=== PATIENT | female | born 1980 | race Caucasian/White ===

== ENCOUNTER 2016-07-30 06:39 | Emergency (ER) | payer SELFPAY ==
[2016-07-30 06:58] VITALS: BP 115/61
[2016-07-30] MEDS ORDERED: Raltegravir* 400 MG TAB PO ONE (07:27)
[2016-07-30] MEDS ORDERED: Tenofovir/Emtricitabine(*) TAB PO ONE (07:27)
--- NOTE | 2016-07-30 07:38 | ED ---
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 The needle came out of the sleeping patient and stuck the lab worker in the right index finger. She immediately washed the area with soap and water, and came to the ED for evaluation. He tetanus is up to date. - History of Current Complaint Chief Complaint: EDExposureBodyFluid Stated Complaint: EXPOSURE/NEEDLE STICK Time Seen by Provider: 07/30/16 06:43 Date of Incident: 07/30/16 Time of Incident: 06:26 Job Performing at Time of Incident: blood draw Mechanism of Injury: patient moved Needlestick: Hollow Needle - 21 gauge Blood on Needle: Yes Depth of Needlestick: Puncture Depth: superficial Bleeding at Site: Yes Body Fluid Exposure: Blood Treatment PRODUCTION TEAM MEMBER: Cleaned Wound, Expressed Blood - Source Information HIV: Unknown Hepatitis: Unknown - Risk Factors Needlestick Risk Factor: Low Risk: Short Duration - Other Discussed Post-Exposure prophylaxis (PEP) for HIV: Accepted Discussed PEP for Hepatitis-B: Declined Serologic Testing (HIV/HBV) Declined by Patient: Yes PMH/Surg Hx/FS Hx/Imm Hx Previously Healthy: Yes Infectious Disease History: No Infectious Disease History: Denies: Traveled Outside the [place] in Last 30 Days - Family History Known Family History: Positive: None - Social History Occupation: Employed Full-time Lives: With Family Alcohol Use: Rare Substance Use Type: Reports: None Smoking Status (MU): Never Smoked Tobacco Review of Systems Positive: Other - superficial puncture wound to medial aspect of right index finger All Other Systems Reviewed And Are Negative: Yes Physical Exam Triage Information Reviewed: Yes Vital Signs On Initial Exam: Initial Vitals Temp Pulse Resp BP Pulse Ox 97.9 F 71 16 115/61 98 07/30/16 06:50 07/30/16 06:50 07/30/16 06:50 07/30/16 06:50 07/30/16 06:50 Vital Signs Reviewed: Yes Appearance: Positive: Well-Appearing, No Pain Distress, Obese Skin: Positive: Warm, Skin Color Reflects Adequate Perfusion, Dry, Tender - superficial puncture wound to medial aspect of right index finger, Soft Head/Face: Positive: Normal Head/Face Inspection Eyes: Positive: EOMI, LION, Conjunctiva Clear ENT: Positive: Hearing grossly normal Respiratory/Lung Sounds: Positive: Breath Sounds Present Cardiovascular: Positive: RRR Musculoskeletal: Positive: Strength/ROM Intact. Negative: Edema Left, Edema Right Neurological: Positive: Sensory/Motor Intact, Alert, Oriented to Person Place, Time, NV Bundle Intact Distally Psychiatric: Positive: Affect/Mood Appropriate AVPU Assessment: Alert Diagnostics - Vital Signs Vital Signs Temp Pulse Resp BP Pulse Ox 07/30/16 06:50 97.9 F 71 16 115/61 98 - Laboratory Lab Statement: Any lab studies that have been ordered have been reviewed, and results considered in the medical decision making process. Needlestick Course/Dx - Course Assessment/Plan: Patient was counseled about PEP and opted to undergo treatment. She will be given her first dose in the ED and discharged with a 7 day supply as per protocol. She will follow up with DR. Hamlin and Xena Tay, and will return to work today. - Diagnoses Provider Diagnoses: Needle stick injury of finger, Employee exposure to body fluids Discharge - Discharge Plan Condition: Stable Disposition: HOME Prescriptions: Raltegravir* [Isentress*] 400 mg PO BID #46 tab Tenofovir/Emtricitabine(*) [Truvada*] 1 tab PO DAILY #23 tab Patient Education Materials: Postexposure Prophylaxis (ED) Referrals: Yakelin NGUYEN,Rip Deal [Medical Doctor] - Additional Instructions: Please call Xena Tay with [facility] [place] [facility] employee health at [phone] for follow-up instructions. Call Dr. Hamlin as well for a follow-up appointment in the next 4-7 days. Take the medication as prescribed. Return to the emergency department if your symptoms worsen.
[2016-07-30 07:46] LABS: Hematocrit 40 % (35-47); Hemoglobin 13.1 g/dl (12.0-16.0); Mean Corpuscular HGB Conc 33 g/dl (31-36); Mean Corpuscular Hemoglobin 27 pg (27-31); Mean Corpuscular Volume 82 fL (80-97); Mean Platelet Volume 8 um3 (7.4-10.4); Red Blood Count 4.85 10^6/ul (4.0-5.4); Red Cell Distribution Width 14 % (10.5-15); White Blood Count 7.2 10^3/ul (3.5-10.8)
[2016-07-30 07:57] LABS: Albumin 3.9 g/dL (3.2-5.2); BUN/Creatinine Ratio 21.1 (8-20); Calcium 8.9 mg/dL (8.6-10.3); EGFR African American 154.3 (>60); Globulin 3.7 g/dL (2-4); Potassium 3.7 mmol/L (3.5-5.0); Total Bilirubin 0.5 mg/dL (0.2-1.0); Total Protein 7.6 g/dL (6.4-8.9)
[2016-07-30 09:02] LABS: Manual Entry Verification GRE0060; Rapid HIV INT CONT QC Line Present; Rapid HIV Kit Lot# F209011
== END 2016-07-30 11:46 | disposition home or self-care (01) ==
LOC: ED 06:39
DX: S61.230A Puncture wound without foreign body of right index finger without damage to nail, initial encounter (principal); Z77.21 Contact with and (suspected) exposure to potentially hazardous body fluids; W46.1XXA Contact with contaminated hypodermic needle, initial encounter; Y93.89 Activity, other specified; Y92.239 Unspecified place in hospital as the place of occurrence of the external cause; Y99.9 Unspecified external cause status
CPT/HCPCS: 36415; 80053; 84702; 85027; 86703; 86706; 86803; 87340; 99282

== ENCOUNTER 2017-03-04 14:15 | Emergency (ER) | payer BC, OTHER ==
[2017-03-04 14:59] LABS: Hematocrit 40 % (35-47); Hemoglobin 12.8 g/dl (12.0-16.0); Mean Corpuscular HGB Conc 32 g/dl (31-36); Mean Corpuscular Hemoglobin 25 pg (27-31); Mean Corpuscular Volume 78 fL (80-97); Mean Platelet Volume 7 um3 (7.4-10.4); Red Blood Count 5.05 10^6/ul (4.0-5.4); Red Cell Distribution Width 14 % (10.5-15); White Blood Count 7.7 10^3/ul (3.5-10.8)
[2017-03-04] MEDS ORDERED: Ketorolac INJ* 30 MG/ML 1 ML VIAL IV PUSH ONE (15:20)
--- NOTE | 2017-03-04 15:24 | RAD ---
INDICATION: Chest pain. Cardiac disease. COMPARISON: No relevant prior exams available on the [facility] for comparison. TECHNIQUE: Dual energy PA and routine lateral views of the chest were obtained. REPORT: Clear lungs and pleural spaces. Negative for pneumothorax. The heart, pulmonary vasculature, and mediastinal contours are unremarkable. Unremarkable osseous structures and soft tissue contours. IMPRESSION: No evidence for acute intrathoracic disease.
[2017-03-04 15:25] LABS: ALT 30 U/L (7-52); AST 25 U/L (13-39); Albumin 3.8 g/dL (3.2-5.2); Alkaline Phosphatase 101 U/L (34-104); Anion Gap 5 mmol/L (2-11); BUN/Creatinine Ratio 18.3 (8-20); Blood Urea Nitrogen 11 mg/dL (6-24); CO2 Carbon Dioxide 23 mmol/L (22-32); Calcium 8.7 mg/dL (8.6-10.3); Chloride 108 mmol/L (101-111); Creatine Kinase 41 U/L (10-223); EGFR African American 144.7 (>60); EGFR Non-African American 112.5 (>60); Globulin 3.7 g/dL (2-4); Glucose 118 mg/dL (70-100); Potassium 3.3 mmol/L (3.5-5.0); Sodium 136 mmol/L (133-145); Total Protein 7.5 g/dL (6.4-8.9)
[2017-03-04 16:02] LABS: Urine Bilirubin Negative (Negative); Urine Glucose Negative (Negative); Urine Nitrite Negative (Negative)
[2017-03-04 16:08] LABS: TSH (Thyroid Stimulating Horm) 1.42 mcIU/mL (0.34-5.60)
[2017-03-04 17:51] VITALS: BP 104/64
--- NOTE | 2017-03-04 18:08 | ED ---
Tacho Osborn Angela, scribed for Hugh Goodwin MD on 03/04/17 at 1435 . HPI Chest Pain - HPI Summary HPI Summary: This pt is a 36 y/o female presenting to [facility] c/o chest pain radiating to her back upon awaking today. Pt reports associated anxiety while resting yesterday. Pt describes her chest pain as dull and pressure, with SOB. Currently, she states there a lot more pressure and can feel the pain all the way to her back close to her spine. Her pain is aggravated with deep breaths, movement of arms, and ambulation Pt denies nausea, vomiting, cough, fever. She states feeling light-headed and dizzy earlier today, but has now resolved. Pt notes PMHX: heart murmurs as a child, PCOS, asthma. SHx: cholecystectomy (2010) and uterus surgeries. She denies FHx of [place] at her age. Pt takes keara root BID and allergy pills PRN. - History of Current Complaint Chief Complaint: EDChestPainROMI Time Seen by Provider: 03/04/17 14:27 Hx Obtained From: Patient Onset/Duration: Started Hours Ago Timing: Lasting Hours Pain Intensity: 6 Chest Pain Location: Mid Sternal Chest Pain Radiates: Yes Chest Pain Radiates To:: Back Character: Dull/Aching, Pressure/Squeezing Aggravating Factor(s): Movement, Deep Breaths, Other: - ambulating Associated Signs and Symptoms: Positive: Chest Pain, Anxiety, Dizziness - and light-headedness, now both resolved, Shortness of Breath, Back Pain. Negative: Fever, Chills, Nausea, Cough, Abdominal Pain, Vomiting - Allergy/Home Medications Allergies/Adverse Reactions: Allergies Allergy/AdvReac Type Severity Reaction Status Date / Time No Known Allergies Allergy Verified 03/04/17 14:39 Home Medications: Home Medications Keara Root [Femmenessence Macaharmony] 500 mg PO BID 03/04/17 [History Confirmed 03/04/17] PMH/Surg Hx/FS Hx/Imm Hx Endocrine/Hematology History: Denies: Hx Diabetes Cardiovascular History: Reports: Other Cardiovascular Problems/Disorders - heart murmur Denies: Hx Hypertension, Hx Myocardial Infarction Respiratory History: Reports: Hx Asthma History: Reports: Other Problems/Disorders - PCOS - Surgical History Surgery Procedure, Year, and Place: cholecystectomy in 2010. Surgeries in her uterus. Infectious Disease History: No Infectious Disease History: Denies: Traveled Outside the US in Last 30 Days - Family History Known Family History: Negative: Cardiac Disease - NEGATIVE: [place] in father or mother - Social History Alcohol Use: Rare Substance Use Type: Reports: None Smoking Status (MU): Former Smoker - quit 9 years ago Review of Systems Negative: Fever, Chills Eyes: Negative ENT: Negative Positive: Chest Pain. Negative: Palpitations Positive: Shortness Of Breath. Negative: Cough Negative: Abdominal Pain, Vomiting, Diarrhea, Nausea Genitourinary: Negative Positive: Other - back pain Skin: Negative Neurological: Other - light headedness and dizziness earlier, now resolved Negative: Weakness, Paresthesia, Numbness All Other Systems Reviewed And Are Negative: Yes Physical Exam - Summary Physical Exam Summary: VITAL SIGNS: Reviewed. GENERAL: ~Patient is a well-developed and nourished female who is lying comfortable in the stretcher. ~Patient is not in any acute respiratory distress. HEAD AND FACE: No signs of trauma. ~No ecchymosis, hematomas or skull depressions. No sinus tenderness. EYES: PERRLA, EOMI x 2, No injected conjunctiva, no nystagmus. EARS: Hearing grossly intact. Ear canals and tympanic membranes are within normal limits. MOUTH: Oropharynx within normal limits. NECK: Supple, trachea is midline, no adenopathy, no JVD, no carotid bruit, no c- spine tenderness, neck with full ROM. CHEST: Symmetric. There is reproducible chest pain around the midsternal area and on the left chest area. LUNGS: Clear to auscultation bilaterally. No wheezing or crackles. CVS: Regular rate and rhythm, S1 and S2 present, no murmurs or gallops appreciated. ABDOMEN: Soft, non-tender. No signs of distention. No rebound no guarding, and no masses palpated. Bowel sounds are normal. EXTREMITIES: FROM in all major joints, no edema, no cyanosis or clubbing. NEURO: Alert and oriented x 3. No acute neurological deficits. Speech is normal and follows commands. SKIN: Dry and warm Triage Information Reviewed: Yes Vital Signs On Initial Exam: Initial Vitals Temp Pulse Resp BP Pulse Ox 98.2 F 83 20 124/69 98 03/04/17 14:23 03/04/17 14:23 03/04/17 14:23 03/04/17 14:23 03/04/17 14:23 Vital Signs Reviewed: Yes Diagnostics - Vital Signs Vital Signs Temp Pulse Resp BP Pulse Ox 03/04/17 14:23 98.2 F 83 20 124/69 98 - Laboratory Lab Results: Lab Results 03/04/17 03/04/17 03/04/17 Range/Units 14:28 14:44 14:44 WBC (3.5-10.8) 10^3/ul RBC (4.0-5.4) 10^6/ul Hgb (12.0-16.0) g/dl Hct (35-47) % MCV (80-97) fL MCH (27-31) pg MCHC (31-36) g/dl RDW (10.5-15) % Plt Count (150-450) 10^3/ul MPV (7.4-10.4) um3 Neut % (Auto) (38-83) % Lymph % (Auto) (25-47) % [place] % (Auto) (1-9) % Eos % (Auto) (0-6) % Baso % (Auto) (0-2) % Absolute Neuts (auto) (1.5-7.7) 10^3/ul Absolute Lymphs (auto) (1.0-4.8) 10^3/ul Absolute Monos (auto) (0-0.8) 10^3/ul Absolute Eos (auto) (0-0.6) 10^3/ul Absolute Basos (auto) (0-0.2) 10^3/ul Absolute Nucleated RBC 10^3/ul Nucleated RBC % D-Dimer, Quantitative < 200 (Less Than 230) ng/mL Sodium 136 (133-145) mmol/L Potassium 3.3 L (3.5-5.0) mmol/L Chloride 108 (101-111) mmol/L Carbon Dioxide 23 (22-32) mmol/L Anion Gap 5 (2-11) mmol/L BUN 11 (6-24) mg/dL Creatinine 0.60 (0.51-0.95) mg/dL Est GFR ( Amer) 144.7 (>60) Est GFR (Non-Af Amer) 112.5 (>60) BUN/Creatinine Ratio 18.3 (8-20) Glucose 118 H (70-100) mg/dL Calcium 8.7 (8.6-10.3) mg/dL Total Bilirubin 0.30 (0.2-1.0) mg/dL AST 25 (13-39) U/L ALT 30 (7-52) U/L Alkaline Phosphatase 101 (34-104) U/L Total Creatine Kinase 41 (10-223) U/L CK-MB (CK-2) 1.6 (0.6-6.3) ng/mL Troponin I 0.00 (<0.04) ng/mL B-Natriuretic Peptide 19 ( - 100) pg/mL Total Protein 7.5 (6.4-8.9) g/dL Albumin 3.8 (3.2-5.2) g/dL Globulin 3.7 (2-4) g/dL Albumin/Globulin Ratio 1.0 (1-3) TSH 1.42 (0.34-5.60) mcIU/mL Beta HCG, Quant < 0.60 mIU/mL Urine Color Urine Appearance Urine pH (5-9) Ur Specific [place] (1.010-1.030) Urine Protein (Negative) Urine Ketones (Negative) Urine Blood (Negative) Urine Nitrate (Negative) Urine Bilirubin (Negative) Urine Urobilinogen (Negative) Ur Leukocyte Esterase (Negative) Urine Glucose (Negative) 03/04/17 03/04/17 Range/Units 14:44 15:40 WBC 7.7 (3.5-10.8) 10^3/ul RBC 5.05 (4.0-5.4) 10^6/ul Hgb 12.8 (12.0-16.0) g/dl Hct 40 (35-47) % MCV 78 L (80-97) fL MCH 25 L (27-31) pg MCHC 32 (31-36) g/dl RDW 14 (10.5-15) % Plt Count 332 (150-450) 10^3/ul MPV 7 L (7.4-10.4) um3 Neut % (Auto) 65.2 (38-83) % Lymph % (Auto) 22.6 L (25-47) % [place] % (Auto) 6.0 (1-9) % Eos % (Auto) 5.5 (0-6) % Baso % (Auto) 0.7 (0-2) % Absolute Neuts (auto) 5.0 (1.5-7.7) 10^3/ul Absolute Lymphs (auto) 1.7 (1.0-4.8) 10^3/ul Absolute Monos (auto) 0.5 (0-0.8) 10^3/ul Absolute Eos (auto) 0.4 (0-0.6) 10^3/ul Absolute Basos (auto) 0.1 (0-0.2) 10^3/ul Absolute Nucleated RBC 0 10^3/ul Nucleated RBC % 0 D-Dimer, Quantitative (Less Than 230) ng/mL Sodium (133-145) mmol/L Potassium (3.5-5.0) mmol/L Chloride (101-111) mmol/L Carbon Dioxide (22-32) mmol/L Anion Gap (2-11) mmol/L BUN (6-24) mg/dL Creatinine (0.51-0.95) mg/dL Est GFR ( Amer) (>60) Est GFR (Non-Af Amer) (>60) BUN/Creatinine Ratio (8-20) Glucose (70-100) mg/dL Calcium (8.6-10.3) mg/dL Total Bilirubin (0.2-1.0) mg/dL AST (13-39) U/L ALT (7-52) U/L Alkaline Phosphatase (34-104) U/L Total Creatine Kinase (10-223) U/L CK-MB (CK-2) (0.6-6.3) ng/mL Troponin I (<0.04) ng/mL B-Natriuretic Peptide ( - 100) pg/mL Total Protein (6.4-8.9) g/dL Albumin (3.2-5.2) g/dL Globulin (2-4) g/dL Albumin/Globulin Ratio (1-3) TSH (0.34-5.60) mcIU/mL Beta HCG, Quant mIU/mL Urine Color Yellow Urine Appearance Clear Urine pH 5 (5-9) Ur Specific [place] 1.025 (1.010-1.030) Urine Protein Negative (Negative) Urine Ketones Negative (Negative) Urine Blood Negative (Negative) Urine Nitrate Negative (Negative) Urine Bilirubin Negative (Negative) Urine Urobilinogen Negative (Negative) Ur Leukocyte Esterase Negative (Negative) Urine Glucose Negative (Negative) Result Diagrams: 03/04/17 14:44 03/04/17 14:44 Lab Statement: Any lab studies that have been ordered have been reviewed, and results considered in the medical decision making process. - Radiology Chest XR Xray Interpretation: No Acute Changes - IMPRESSION: No evidence for acute intrathoracic disease. ED physician has reviewed this radiology report and agrees. Radiology Interpretation Completed By: Radiologist - EKG 1430 Cardiac Rate: NL - 91 bpm EKG Rhythm: Sinus Rhythm ST Segment: Normal EKG Interpretation: Normal axis. No ST elevation. Re-Evaluation - Re-Evaluation First Eval Re-Evaluation Time: 17:40 Comment: Pt is feeling better and is no longer in pain. Chest Pain Course/Dx - Course Assessment/Plan: In the ED course an IV access was obtained. Patient was placed in a alarm security or surveillance monitor. Patient was started with IV fluids. SHe was given Toradol for the CP since patient carlson is reproducible and she has no comorbidities for ACS. Labs w/o a significant abnormality except for potassium of 3.3 for which she was given potassium chloride. D Dimer is negative therefore no suspicion for PE. Troponin #1: 0.0 and Troponin # 2 (4 hours later): EKG shows a NSR at 91 bpm w/o ST elevations. CXR impression: No acute pathology. After medications her symptoms improved and she has remained asymptomatic. I discussed all the findings and test results with the patient. Patient was instructed to return to the emergency room immediately if any of the symptoms return or worsens. Plan of care was discussed with the patient and understands and agrees. All questions were answered at patient satisfaction. There were no further complaints or concerns. Lung exam before discharge: CTA B /L. Good air exchange. No wheezing or crackles heard. CVS: S1 and S2 present. No murmurs appreciated. Patient is alert and oriented x 3. Patient is hemodynamically stable. Patient will be discharged home with follow up PCP in the next 2-3 days - Chest Pain Differential Diagnosis/HQI/PQRI: ACS, Angina, CHF, Chest Wall, GI Disease, Lower Respiratory Infection - Diagnoses Provider Diagnoses: Atypical chest pain Discharge - Discharge Plan Condition: Stable Disposition: HOME Patient Education Materials: Chest Pain (ED) Referrals: [facility] PHYSICIAN REFERRAL [Outside] - 3 Days No Primary Care Phys,NOPCP [Primary Care Provider] - Additional Instructions: Please establish a primary care provider at the phone provided and follow up. The documentation as recorded by the Tacho reaves Angela accurately reflects the service I personally performed and the decisions made by , Hugh Goodwin MD.
== END 2017-03-04 17:50 | disposition home or self-care (01) ==
LOC: ED 14:15
DX: R07.89 Other chest pain (principal); R06.02 Shortness of breath; Z87.891 Personal history of nicotine dependence
CPT/HCPCS: 36415; 71020; 80053; 81003; 82550; 82553; 83880; 84443; 84484; 84702; 85025; 85379; 93005; 96374; 99283; J1885

== ENCOUNTER 2017-12-27 17:40 | Emergency (ER) | payer SELFPAY ==
--- NOTE | 2017-12-27 18:07 | ED ---
Lower Extremity - HPI Summary HPI Summary: Patient complains of right foot pain after being hit on top of right foot with a [employer] board today. Denies loss of sensation or function distally. Denies any other pain or injury. Medical history is none. - History of Current Complaint Chief Complaint: EDExtremityLower Stated Complaint: POSS BROKEN RT FOOT Time Seen by Provider: 12/27/17 17:58 Hx Obtained From: Patient Mechanism Of Injury: Blunt Trauma Onset of Pain: Immediate Onset/Duration: Hours Severity Initially: Moderate Severity Currently: Moderate Pain Intensity: 3 Pain Scale Used: 0-10 Numeric Timing: Constant Location: Is Discrete @ Character Of Pain: Sharp Associated Signs And Symptoms: Positive: Swelling, Bruising Aggravating Factor(s): Standing, Weight Bearing Alleviating Factor(s): Rest Able to Bear Weight: No - Allergies/Home Medications Allergies/Adverse Reactions: Allergies Allergy/AdvReac Type Severity Reaction Status Date / Time No Known Allergies Allergy Verified 12/27/17 17:47 PMH/Surg Hx/FS Hx/Imm Hx Endocrine/Hematology History: Denies: Hx Anticoagulant Therapy, Hx Diabetes Cardiovascular History: Reports: Other Cardiovascular Problems/Disorders - heart murmur Denies: Hx Hypertension, Hx Myocardial Infarction Respiratory History: Reports: Hx Asthma History: Reports: Other Problems/Disorders - PCOS Neurological History: Denies: Hx CVA - Surgical History Surgery Procedure, Year, and Place: cholecystectomy in 2010. Surgeries in her uterus. Infectious Disease History: No Infectious Disease History: Denies: Traveled Outside the [place] in Last 30 Days - Family History Known Family History: Positive: None Negative: Cardiac Disease - NEGATIVE: [place] in father or mother - Social History Alcohol Use: Rare Substance Use Type: Reports: None Hx Tobacco Use: No Smoking Status (MU): Never Smoked Tobacco Review of Systems Constitutional: Negative Eyes: Negative ENT: Negative Cardiovascular: Negative Respiratory: Negative Gastrointestinal: Negative Genitourinary: Negative Musculoskeletal: Other Positive: Bruising Neurological: Negative Psychological: Normal All Other Systems Reviewed And Are Negative: Yes Physical Exam - Summary Physical Exam Summary: Ecchymosis, swelling noted to top of right midfoot. No deformity, erythema, extra warmth noted. PMS intact distally. Triage Information Reviewed: Yes Vital Signs On Initial Exam: Initial Vitals Temp Pulse Resp BP Pulse Ox 98.3 F 89 15 97/70 97 12/27/17 17:44 12/27/17 17:44 12/27/17 17:44 12/27/17 17:44 12/27/17 17:44 Vital Signs Reviewed: Yes Appearance: Positive: Well-Appearing Skin: Positive: Warm Head/Face: Positive: Normal Head/Face Inspection Eyes: Positive: Normal Neck: Positive: Supple Respiratory/Lung Sounds: Positive: Clear to Auscultation Cardiovascular: Positive: Normal Abdomen Description: Positive: Nontender Musculoskeletal: Positive: Normal Neurological: Positive: Normal Psychiatric: Positive: Normal AVPU Assessment: Alert - [place] Coma Scale Best Eye Response: 4 - Spontaneous Best Motor Response: 6 - Obeys Commands Best Verbal Response: 5 - Oriented Coma Scale Total: 15 Diagnostics - Vital Signs Vital Signs Temp Pulse Resp BP Pulse Ox 12/27/17 18:03 98.7 F 87 18 99/55 96 12/27/17 17:44 98.3 F 89 15 97/70 97 - Laboratory Lab Statement: Any lab studies that have been ordered have been reviewed, and results considered in the medical decision making process. - Radiology foot Xray Interpretation: No Acute Changes Radiology Interpretation Completed By: Radiologist Lower Extremity Course/Dx - Course Course Of Treatment: Patient complains of right foot pain after being hit on top of right foot with a [employer] board today. Denies loss of sensation or function distally. Denies any other pain or injury. Medical history is none. PMS intact on physical exam. X-ray of foot negative for acute fracture. We'll provide crutches for patient if she desires. Ibuprofen and ice for pain and swelling. Follow-up with primary care - Diagnoses Provider Diagnoses: Foot trauma Discharge - Sign-Out/Discharge Documenting (check all that apply): Patient Departure - Discharge Plan Condition: Stable Disposition: HOME Patient Education Materials: Foot Contusion (ED) Referrals: Hu Ortiz MD [Primary Care Provider] - Additional Instructions: Ice and ibuprofen for pain and swelling. Follow-up with primary care. Return to the ED for any new or worsening symptoms - Billing Disposition and Condition Condition: STABLE Disposition: Home
--- NOTE | 2017-12-27 18:43 | RAD ---
INDICATION: Pain in the midfoot after patient was "hit in right foot by a child on a skateboard" COMPARISON: None. TECHNIQUE: 3 views of the right foot were obtained. FINDINGS: The adequately corticated bones are properly aligned. Joint spaces appear maintained. No fracture, dislocation or focal bony abnormality is seen. There is an enthesophyte at the origin of the plantar fascia on the calcaneal tubercle. IMPRESSION: NO RADIOGRAPHICALLY APPARENT FRACTURE OR DISLOCATION. If the patient's symptoms persist, follow-up imaging is recommended.
[2017-12-27 19:17] VITALS: BP 99/63
== END 2017-12-27 19:16 | disposition home or self-care (01) ==
LOC: ED 17:40
DX: S99.921A Unspecified injury of right foot, initial encounter (principal); W22.8XXA Striking against or struck by other objects, initial encounter; Y92.9 Unspecified place or not applicable
CPT/HCPCS: 99282

== ENCOUNTER 2019-01-27 11:29 | Day surgery (SDC) | payer OTHER ==
[~2019-01-27 11:29] MED LIST: Buffered Lidocaine 1% SYRIN* 1 ML/SYRINGE INTRADERM ONE; Dexamethasone IV* 4 MG/ML 1 ML (4 MG) IV SLOW PU ONE; Famotidine IV* 10 MG/ML 2 ML (20 mg) IV ONE; Lactated Ringers 1000 ML Bag* 1,000 ML IV SCH; Sodium Citrate/Citric Acid* 15 ML UDC PO ONE
[2019-01-27] MEDS ORDERED: Dexamethasone IV* 4 MG/ML 1 ML (4 MG) ONE (11:55)
[2019-01-27] MEDS ORDERED: ceFOXitin 2 GM IVPREMIX* 2 GM/50 ML BAG ONE (11:56)
[2019-01-27] MEDS ORDERED: Buffered Lidocaine 1% SYRIN* 1 ML/SYRINGE INTRADERM ONE (11:57)
[2019-01-27] MEDS ORDERED: Famotidine IV* 10 MG/ML 2 ML (20 mg) ONE (11:57)
[2019-01-27] MEDS ORDERED: oxyCODONE/Acetamin 5/325 MG* TAB PO PRN (13:40)
[2019-01-27] MEDS ORDERED: fentaNYL* 50 MCG/ML 2 ML VIAL (100 MCG VIAL) IV PRN (13:40)
[2019-01-27] MEDS ORDERED: Naloxone* 0.4 MG/ML 1 ML VIAL IV PRN (13:40)
[2019-01-27] MEDS ORDERED: Ondansetron INJ* 2 MG/ML VIAL IV PRN (13:40)
[2019-01-27] MEDS ORDERED: DiMENhydriNATE IV* 50 MG/ML VIAL IV PUSH PRN (13:40)
[2019-01-27] MEDS ORDERED: Midazolam* 1 MG/ML 5 ML VIAL (5 MG) ONE (13:47)
[2019-01-27] MEDS ORDERED: fentaNYL* 50 MCG/ML 5 ML VIAL (250 MCG VIAL) ONE (13:47)
[2019-01-27] MEDS ORDERED: Ketorolac INJ* 30 MG/ML 1 ML VIAL ONE (14:16)
[2019-01-27] MEDS ORDERED: Ondansetron INJ* 2 MG/ML VIAL ONE (14:16)
[2019-01-27] MEDS ORDERED: Propofol* 10 MG/ML 20 ML BTL ONE (14:16)
[2019-01-27] MEDS ORDERED: Lidocaine 2% PF * 5 ML VIAL ONE (14:16)
[2019-01-27] MEDS ORDERED: Silver Nitrate/Potassium Nitr* 1 EA STICK ONE (14:19)
[2019-01-27 15:29] VITALS: BP 106/76
--- NOTE | 2019-01-27 16:10 | OP ---
DATE OF OPERATION: 01/27/19 - [facility] DATE OF : 78 SURGEON: Dr. Britton. NUT SORTER OPERATOR: None. ANESTHESIA: General endotracheal tube. PRE-OP DIAGNOSIS: Menorrhagia. POST-OP DIAGNOSIS: Menorrhagia. OPERATIVE PROCEDURES: D and C, hysteroscopy, endometrial ablation. ESTIMATED BLOOD LOSS: Minimal. SPECIMEN: Includes endometrium. FINDINGS: Include normal cavity. Both tubal ostia well visualized. Cervix, vagina, vulva appeared normal. DESCRIPTION OF PROCEDURE: The patient was identified, procedure identified as a D and C, hysteroscopy, NovaSure endometrial ablation. The patient was taken to the operating room, prepped and draped in the usual fashion in the dorsal lithotomy position under general anesthesia. Two single-tooth tenaculum were placed on the anterior lip of the cervix. Cervix was sounded to 9 cm. Hegar dilators were used to find the endocervical length of 3 cm making the cavity length 6 cm. The NovaSure device was opened. The _Array_ was checked, and NovaSure was placed within the uterine cavity and manipulated until a cavity width of 3.5 cm was noted, power setting of 116 eaton. The perforation test was performed. Then the device passed. Device was enabled and NovaSure ablation took place for 1 min and 22 sec. At the end of the procedure, device was removed, and the hysteroscope was reinserted and a good NovaSure ablation was noted. All instruments were removed from vagina. The left-handed tenaculum site was bleeding significantly and a 3-0 Vicryl [id number] suture was placed around it with good hemostasis. All sponge and instrument counts were correct, and the patient returned to the recovery room in stable condition. [id number]/[facility] #: [id number] [facility]
== END 2019-01-27 15:43 | disposition home or self-care (01) ==
LOC: OR 11:29
PROVIDERS: ATTEND Obstetrics & Gynecology
DX: N92.0 Excessive and frequent menstruation with regular cycle (principal); D50.9 Iron deficiency anemia, unspecified
CPT/HCPCS: 81025; 88305; 88342; A9270-GY; J0694; J1100; J1885; J2250; J2405; J2704; J3010

== ENCOUNTER 2019-02-28 10:00 | Emergency (ER) | payer MEDICAID, OTHER ==
--- OUTSIDE RECORDS SUMMARY | 2019-02-28 10:13 | XMS REPORT | Continuity of Care Document ---
:1980 External Reference #:[id number] Author Name David Britton M.D. Address [address] [place] [id number] Care Team Providers Name Role Phone Hu Ortiz Care Team Information Language Specialist [phone] Problems Active Problems Provider Date Dysfunctional uterine bleeding David Britton M.D. Onset: 02/10/2019 Social History Type Date Description Comments Sex Unknown Tobacco Use Start: Unknown Never Smoked Cigarettes ETOH Use Denies alcohol use Recreational Drug Use Denies Drug Use Tobacco Use Start: Unknown Patient has never smoked Smoking Status Reviewed: 02/18/19 Patient has never smoked Exercise Type/Frequency Does not exercise Seat Belt/Car Seat Always uses seat belt Allergies, Adverse Reactions, Alerts Description No Known Drug Allergies Medications Active Medications SIG Qnty Indications Ordering Provider Date No Active Medications Unknown 02/18/2019 History Medications No Active Unknown 01/05/2019 - Medications 01/05/2019 Ibuprofen take one tab by 30tabs Z01.818 David Villagran 01/05/2019 - 600mg mouth every 6 Gelber M.DFrances 02/13/2019 Tablets hours as needed pain Lysteda 2 by mouth 30tabs N92.0 David Villagran 11/22/2018 - 650mg Tablets three times a Gelber, M.D. 11/13/2018 day during period Tranexamic Acid 2 by mouth 30tabs N92.0 David Villagran 10/20/2018 - 650mg three times a Gelber, M.D. 11/22/2018 Tablets day Medications Administered in Office Medication SIG Qnty Indications Ordering Provider Date PT SCRN Tbco Id as Non User David Britton M.D. 02/18/2019 Injection PT SCRN Tbco Id as Non User David Britton M.D. 01/05/2019 Injection PT SCRN Tbco Id as Non User David Britton M.D. 11/22/2018 Injection PT SCRN Tbco Id as Non User David Britton M.D. 10/20/2018 Injection Immunizations Description No Information Available Vital Signs Date Vital Result Comment 02/18/2019 2:09pm BP Systolic 120 mmHg BP Diastolic 68 mmHg Height 64 inches 5'4" Weight 240.00 lb BMI (Body Mass Index) 41.2 kg/m2 16 Parity 5 01/05/2019 9:25am BP Systolic 122 mmHg BP Diastolic 82 mmHg Height 64 inches 5'4" Weight 248.00 lb BMI (Body Mass Index) 42.6 kg/m2 Last Menstrual Period [id number] 16 Parity 5 Results Test Date Facility Test Result H/L Range Note Laboratory test 01/27/2019 [facility] Surgical SEE RESULT 1 [place] [address] Pathology BELOW [phone] Laboratory test 11/24/2018 [facility] Surgical SEE RESULT 2 [place] [address] Pathology BELOW [phone] Thyroid Function 10/20/2018 [facility] Thyroid Stim 1.2 mIU/L 0.3-4.2 [address] [place] [address] Hormone [phone] CBC Auto Diff 10/20/2018 [facility] White Blood 7.5 10^3/uL Normal 3.5-10.8 [place] [address] Count [phone] Red Blood Count 4.87 10^6/uL Normal 3.70-4.87 Hemoglobin 13.6 g/dL Normal 12.0-16.0 Hematocrit 40 % Normal 35-47 Mean Corpuscular Volume 82 fL Normal 80-97 Mean Corpuscular Hemoglobin 28 pg Normal 27-31 Mean Corpuscular HGB Conc 34 g/dL Normal 31-36 Red Cell Distribution Width 17 % High 10.5-15 Platelet Count 313 10^3/uL Normal 150-450 Mean Platelet Volume 8.0 fL Normal 7.4-10.4 Abs Neutrophils 4.2 10^3/uL Normal 1.5-7.7 Abs Lymphocytes 2.1 10^3/uL Normal 1.0-4.8 Abs Monocytes 0.3 10^3/uL Normal 0-0.8 Abs Eosinophils 0.8 10^3/uL High 0-0.6 Abs Basophils 0.1 10^3/uL Normal 0-0.2 Abs Nucleated RBC 0.1 10^3/uL Granulocyte % 55.3 % Lymphocyte % 28.5 % Monocyte % 4.4 % Eosinophil % 11.1 % Basophil % 0.7 % Nucleated Red Blood Cells % 0.0 Laboratory test finding 10/20/2018 [facility] FSH 7.5 mIU/mL 4 [place] [address] [phone] 1 SEE RESULT BELOW Name: LAWANDA HERNANDEZ : [address]: David Britton MD Acct: [id number] Unit: [id number] AGE: 38 Location: OR Re01/27/19 SEX: F Status: [facility] SPEC: [id number] ADAMA: 01/27/19- [facility] DR: David Britton MD REQ: [id number] RECD: 01/27/19 STATUS: SOUT _ ORDERED: LEVEL 4, IMMUNO-FIRST ADDENDUM A CD138 immunohistochemical stain, with appropriately reacting controls, was performed and is negative for increased stromal plasma cells. There is no evidence of chronic endometritis. Addendum Signed (signature on file) Lilly Lowery MD 1021 FINAL DIAGNOSIS Uterus, endometrium, curettage: -- Late secretory endometrium. -- No evidence of hyperplasia or malignancy. COMMENT: An immunohistochemical stain is pending to search for occult endometritis and the results will be reported in an addendum. PRE-OPERATIVE DIAGNOSIS Excessive and frequent menstruation with irregularity CONTINUED ON NEXT PAGE DEPARTMENT OF PATHOLOGY, [address] [place] [address] Edis Covarrubias M.D. Director [facility] # [id number] RUN DATE: 02/01/19 [facility] LAB LIVE PAGE 2 Patient: LAWANDA HERNANDEZ [id number] (Continued) GROSS DESCRIPTION (Continued) GROSS DESCRIPTION The specimen is received in formalin labeled, Endometrial Curettings, and consists of a 1.5 x 1.0 x 0.2 cm aggregate of barahona brown irregular soft tissue fragments admixed with scant mucus and red-brown blood clot. Entirely submitted, one cassette. Signed by and Reported on: Lilly Lowery MD 01/31/19 1034 END OF REPORT DEPARTMENT OF PATHOLOGY, [address] [place] [address] Edis Covarrubias M.D. Director [facility] # [id number] 2 SEE RESULT BELOW Name: VARUNLAWANDA : [address]: David Britton MD Acct: [id number] Unit: [id number] AGE: 38 Location: [facility] Re11/24/18 SEX: F Status: REG REF SPEC: [id number] ADAMA: 11/24/18-[address] [facility] [address]: David Britton MD REQ: [id number] RECD: 11/25/181207 STATUS: TRI HESS DR: Hu Ortiz MD _ ORDERED: LEVEL 4 COMMENTS: [id number] FINAL DIAGNOSIS Uterus, endometrium, biopsy: -- Proliferative pattern endometrium. -- No hyperplasia or neoplasia identified. PRE-OPERATIVE DIAGNOSIS Dysfunctional uterine bleeding GROSS DESCRIPTION The specimen is received in formalin labeled, EM BX, and consists of a 2.5 x 1.6 x 0.2 cm aggregate of barahona irregular soft tissue fragments admixed with mucus. The specimen is filtered and submitted entirely in one cassette. Signed by and Reported on: Edis Covarrubias MD 1513 END OF REPORT DEPARTMENT OF PATHOLOGY, [address] [place] [address] Edis Covarrubias M.D. Director [facility] # [id number] 3 Test Performed by: [place] [address] 4 Normally menstruating females - Follicular phase 3 - 9 - Mid-cycle peak 4 - 23 - Luteal phase 1 - 6 Postmenopausal females 16 - 114 Procedures Date Code Description Status 01/27/2019 41656 Endometrial Ablation,Hysteroscopy Completed 11/24/2018 07439 Hysteroscopy,D&C Completed 11/22/2018 21446 Echography Transvaginal Completed Medical Devices Description No Information Available Encounters Type Date Location Provider Dx Diagnosis Office Visit 02/18/2019 [facility] David Britton, N92.1 Excessive and frequent 2:20p M.D. menstruation with irregular cycle Office Visit 01/05/2019 [facility] David Britton, Z01.818 Encounter for other 9:20a M.D. preprocedural examination Office Visit 11/22/2018 [facility] Office David Britton N92.0 Excessive and frequent 3:40p M.D. menstruation with regular cycle Office Visit 10/20/2018 [facility] Office David Britton N92.0 Excessive and frequent 1:40p M.D. menstruation with regular cycle Assessments Date Code Description Provider 02/18/2019 N92.1 Excessive and frequent menstruation with David Britton M.D. irregular cycle 01/27/2019 N92.1 Excessive and frequent menstruation with David Britton M.D. irregular cycle 01/05/2019 Z01.818 Encounter for other preprocedural David Britton M.D. examination 11/24/2018 N92.1 Excessive and frequent menstruation with David Britton M.D. irregular cycle 11/22/2018 N92.0 Excessive and frequent menstruation with David Britton M.D. regular cycle 11/22/2018 N92.0 Excessive and frequent menstruation with David Britton M.D. regular cycle 11/22/2018 N92.0 Excessive and frequent menstruation with Ultrasounds regular cycle 10/20/2018 N92.0 Excessive and frequent menstruation with David Britton M.D. regular cycle Plan of Treatment 02/18/2019 - David Britton M.D.N92.1 Excessive and frequent menstruation with irregular cycleComments:routine follow up Functional Status Description No Information Available Mental Status Description No Information Available Referrals Description No Information Available
[2019-02-28] MEDS ORDERED: oxyCODONE/Acetamin 5/325 MG* TAB PO ONE (11:13)
[2019-02-28] MEDS ORDERED: Ibuprofen TAB* 600 MG PO ONE (11:15)
--- NOTE | 2019-02-28 11:31 | ED ---
Adult Trauma - HPI Summary HPI Summary: 38-year-old female presents after fall today. States that she ended up falling down 3 stairs and injured her left leg. She did hit her head. No loss consciousness. No nausea or vomiting. No change in vision. Does admit to neck pain on the sides of the neck. Is not on blood thinners. No hip pain. Denies any other injury. Unable to place weight on the left leg. pain is greatest in left knee. feels like knee is going to give out. - History of Current Complaint Chief Complaint: EDFall Stated Complaint: FALL LEFT KNEE PAIN Time Seen by Provider: 02/28/19 10:29 Pain Intensity: 7 - Allergy/Home Medications Allergies/Adverse Reactions: Allergies Allergy/AdvReac Type Severity Reaction Status Date / Time No Known Allergies Allergy Verified 02/28/19 10:04 PMH/Surg Hx/FS Hx/Imm Hx Endocrine/Hematology History: Reports: Hx Anemia - FROM MENSTRUATION HAD AN IRON TRANSFUSION Denies: Hx Anticoagulant Therapy, Hx Diabetes Cardiovascular History: Reports: Other Cardiovascular Problems/Disorders - heart murmur Denies: Hx Hypertension, Hx Myocardial Infarction Respiratory History: Reports: Hx Asthma - RESCUE INHALER History: Denies: Other Problems/Disorders Sensory History: Reports: Hx Contacts or Glasses - GLASSES Denies: Hx Hearing Aid Opthamlomology History: Reports: Hx Contacts or Glasses - GLASSES Neurological History: Denies: Hx CVA - Surgical History Surgery Procedure, Year, and Place: cholecystectomy in 2010. Surgeries in her uterus. BILATERAL TUBAL 2012 Hx Anesthesia Reactions: No Infectious Disease History: No Infectious Disease History: Denies: Traveled Outside the [place] in Last 30 Days - Family History Known Family History: Positive: None Negative: Cardiac Disease - NEGATIVE: MO in father or mother - Social History Alcohol Use: Rare Substance Use Type: Reports: None Hx Tobacco Use: No Smoking Status (MU): Former Smoker Have You Smoked in the Last Year: No Review of Systems Negative: Fever Negative: Chest Pain Negative: Shortness Of Breath Positive: Myalgia - left leg pain Positive: Headache All Other Systems Reviewed And Are Negative: Yes Physical Exam Triage Information Reviewed: Yes Vital Signs On Initial Exam: Initial Vitals Temp Pulse Resp BP Pulse Ox 97.2 F 73 18 114/76 97 02/28/19 10:01 02/28/19 10:01 02/28/19 10:01 02/28/19 10:01 02/28/19 10:01 Vital Signs Reviewed: Yes Appearance: Positive: Well-Appearing Skin: Positive: Warm, Dry Head/Face: Positive: Normal Head/Face Inspection Eyes: Positive: Normal, EOMI, LION, Conjunctiva Clear ENT: Positive: Normal ENT inspection, Pharynx normal, TMs normal Neck: Positive: Other: - no midline tenderness, tenderness side neck. full ROM neck Respiratory/Lung Sounds: Positive: Clear to Auscultation, Breath Sounds Present Cardiovascular: Positive: Normal, RRR Abdomen Description: Positive: Nontender, Soft Bowel Sounds: Positive: Present Musculoskeletal: Positive: Other - tenderness left knee, nontender left hip, good pulses, Neurological: Positive: Sensory/Motor Intact, Alert, Oriented to Person Place, Time, CN Intact II-III Psychiatric: Positive: Normal - Chidi Coma Scale Best Eye Response: 4 - Spontaneous Best Motor Response: 6 - Obeys Commands Best Verbal Response: 5 - Oriented Coma Scale Total: 15 Diagnostics - Vital Signs Vital Signs Temp Pulse Resp BP Pulse Ox 02/28/19 10:01 97.2 F 73 18 114/76 97 - Laboratory Lab Statement: Any lab studies that have been ordered have been reviewed, and results considered in the medical decision making process. - Radiology knee Radiology Interpretation Completed By: Radiologist Summary of Radiographic Findings: JOINT EFFUSION. OSTEOARTHRITIS. NO ACUTE OSSEOUS INJURY. IF SYMPTOMS PERSIST, RECOMMEND REPEAT IMAGING. femur Radiology Interpretation Completed By: Radiologist Summary of Radiographic Findings: IMPRESSION: NO EVIDENCE FOR FRACTURE. Adult Trauma Course/Dx - Course Course Of Treatment: 38-year-old female presents after fall today. States that she ended up falling down 3 stairs and injured her left leg. She did hit her head. No loss consciousness. No nausea or vomiting. No change in vision. Does admit to neck pain on the sides of the neck. Is not on blood thinners. No hip pain. Denies any other injury. Unable to place weight on the left leg. pain is greatest in left knee. feels like knee is going to give out. On exam tenderness over left knee femur and tibia. Nontender foot and hip left. Normal neuro exam. No midline tenderness neck. Full range of motion neck without pain. According to Nexus criteria does not need neck imaging. according to [place] CT rules does not need head imaging. X-rays of femur knee and lower leg normal. Told to ice and elevate. We'll give knee immobilizer. Told to follow-up with orthopedic. gave head injury precautions. told follow up with primary about head injury. Patient understands agrees with plan. - Diagnoses Differential Diagnosis/HQI/PQRI: Positive: Abrasion(s), Contusion(s), Fracture Provider Diagnoses: Head injury, Fall, Left knee pain Discharge ED - Sign-Out/Discharge Documenting (check all that apply): Patient Departure Patient Received Moderate/Deep Sedation with Procedure: No - Discharge Plan Condition: Good Disposition: HOME Patient Education Materials: Head Injury (ED), Knee Pain (ED) Forms: *Work Release Referrals: Hu Ortiz MD [Primary Care Provider] - Naila Doan MD [Medical Doctor] - Additional Instructions: Place ice on area as needed Take Tylenol or ibuprofen every 6 hours Modify activities as tolerated Follow up with primary within 5 days about head injury follow up with ortho if no improvement in knee pain Return to ED if develop vomiting or any new or worsening symptoms - Billing Disposition and Condition Condition: GOOD Disposition: Home
[2019-02-28 12:05] VITALS: BP 148/73
== END 2019-02-28 12:03 | disposition home or self-care (01) ==
LOC: ED 10:00
DX: S09.90XA Unspecified injury of head, initial encounter (principal); M25.562 Pain in left knee; Z87.891 Personal history of nicotine dependence; W10.9XXA Fall (on) (from) unspecified stairs and steps, initial encounter; Y92.9 Unspecified place or not applicable
CPT/HCPCS: 99282; A9270-GY